=== PATIENT | female | born 1955 | race Caucasian/White ===

== ENCOUNTER 2018-12-03 08:40 | Emergency (ER) | payer OTHER ==
[~2018-12-03] VITALS: Ht 167.6 cm; Wt 65.8 kg
[~2018-12-03 08:40] MED LIST: CLIN150 PO; CYCL10 PO; HYDACE10B PO; MEDICAL THC; MORP50ER PO; NAPR500 PO; RXCLIN PO
[2018-12-03] MEDS ORDERED: METCAR500 PO (09:13)
[2018-12-03] MEDS ORDERED: HYDR1TAB94 PO (09:27)
[2018-12-03] MEDS ORDERED: ABAT250V (09:27)
[2018-12-03] MEDS ORDERED: MORPHINE (09:27)
== END 2018-12-03 09:35 | disposition home or self-care (01) ==
LOC: ER 08:40
DX: M43.6 Torticollis (principal); F17.200 Nicotine dependence, unspecified, uncomplicated; Z91.041 Radiographic dye allergy status; Z88.0 Allergy status to penicillin; Z88.8 Allergy status to other drugs, medicaments and biological substances; Z79.899 Other long term (current) drug therapy; Z79.891 Long term (current) use of opiate analgesic
CPT/HCPCS: 99283

== ENCOUNTER 2018-12-10 12:32 | Emergency (ER) | payer OTHER ==
[~2018-12-10] VITALS: Ht 167.6 cm; Wt 68.0 kg
[~2018-12-10 12:32] MED LIST changes: +ABAT250V; +HYDR1TAB94 PO; +METCAR500 PO; +MORPHINE
[2018-12-10] MEDS ORDERED: LISI20 PO (12:54)
[2018-12-10] MEDS ORDERED: METCAR500 PO (12:54)
[2018-12-10] MEDS ORDERED: Norco 10-325 T1 EACH PO (12:55)
[2018-12-10] MEDS ORDERED: MORP30 PO (12:55)
[2018-12-10 13:07] LABS: BASOPHILS ABSOLUTE AUTO 0.09 K/mm3 (0.00-0.23); BASOPHILS PERCENT AUTO 1 % (0-2); EOSINOPHILS ABSOLUTE AUTO 0.27 K/mm3 (0.00-0.68); EOSINOPHILS PERCENT AUTO 3 % (0-6); Hemoglobin 16.4 g/dL (11.5-16.0); IMMATURE GRAN ABSOLUTE AUTO 0.02 K/mm3 (0.00-0.10); IMMATURE GRAN PERCENT AUTO 0 % (0-1); LYMPHOCYTES ABSOLUTE AUTO 3.86 K/mm3 (0.84-5.20); LYMPHOCYTES PERCENT AUTO 47 % (21-46); MONOCYTES ABSOLUTE AUTO 0.73 K/mm3 (0.16-1.47); MONOCYTES PERCENT AUTO 9 % (4-13); Mean Corpuscular HGB 30.1 pg (26.0-34.0); Mean Corpuscular HGB Conc 32.8 g/dL (31.5-36.5); Mean Corpuscular Volume 92 fL (80-100); Mean Platelet Volume 8.7 fL (9.1-12.4); NEUTROPHILS ABSOLUTE AUTO 3.26 K/mm3 (1.96-9.15); NEUTROPHILS PERCENT AUTO 40 % (41-73); Platelet Count 313 K/mm3 (150-400); RDW Coefficient Variation 13.4 % (11.7-14.2); RDW Standard Deviation 45.4 fL (35.1-46.3); Red Blood Cell Count 5.44 M/mm3 (3.80-5.20); White Blood Cell Count 8.23 K/mm3 (4.00-11.30)
[2018-12-10 13:30] LABS: Alanine Aminotransfer (ALT/SGP 31 U/L (12-78); Albumin, Blood 3.6 g/dL (3.4-5.0); Albumin/Globulin Ratio 0.9 (0.8-1.8); Alk Phos 58 U/L (50-136); Anion Gap 6 mmol/L (6-16); Aspartate Aminotrans (AST/SGOT 35 U/L (12-37); Bilirubin, Total 0.6 mg/dL (0.1-1.0); Blood Urea Nitrogen 23 mg/dL (8-24); Bun/Creatinine Ratio 30.3 (12.0-20.0); CO2, Blood 29 mmol/L (21-32); Calcium, Blood 8.7 mg/dL (8.5-10.1); Chloride, Blood 105 mmol/L (98-108); Creatinine, Blood 0.76 mg/dL (0.40-1.00); Globulin, Blood 3.9 g/dL (2.2-4.0); Glomerular Filtration Rate >60 (60-); Glucose, Blood 95 mg/dL (70-99); Potassium, Blood 4.5 mmol/L (3.5-5.5); Sodium, Blood 140 mmol/L (136-145); Total Protein, Blood 7.5 g/dL (6.4-8.2); Troponin I <0.015 ng/mL (0.000-0.040)
== END 2018-12-10 14:55 | disposition home or self-care (01) ==
LOC: ER 12:32
PROVIDERS: Emergency Medicine
DX: R07.9 Chest pain, unspecified (principal); F17.200 Nicotine dependence, unspecified, uncomplicated; Z91.041 Radiographic dye allergy status; Z88.0 Allergy status to penicillin; Z88.8 Allergy status to other drugs, medicaments and biological substances; Z79.899 Other long term (current) drug therapy
CPT/HCPCS: 36415; 71046; 80053; 84484; 85025; 85379; 93005; 93010; 99284-25

== ENCOUNTER 2019-07-26 11:35 | Inpatient (IN) | payer OTHER ==
[~2019-07-26] VITALS: Ht 170.2 cm; Wt 61.7 kg
[~2019-07-26 11:35] MED LIST changes: +LISI20 PO; +MORP30 PO; +Norco 10-325 T1 EACH PO
[2019-07-26] MEDS ORDERED: Ipratropium Brom5 GM (11:44)
[2019-07-26] MEDS ORDERED: Ipratropium Bro30 ML (11:48)
[2019-07-26 12:11] LABS: BASOPHILS ABSOLUTE AUTO 0.14 K/mm3 (0.00-0.23); BASOPHILS PERCENT AUTO 1 % (0-2); EOSINOPHILS ABSOLUTE AUTO 0.97 K/mm3 (0.00-0.68); EOSINOPHILS PERCENT AUTO 10 % (0-6); Hematocrit 52.7 % (33.0-51.0); Hemoglobin 17.2 g/dL (11.5-16.0); IMMATURE GRAN ABSOLUTE AUTO 0.02 K/mm3 (0.00-0.10); IMMATURE GRAN PERCENT AUTO 0 % (0-1); LYMPHOCYTES ABSOLUTE AUTO 2.66 K/mm3 (0.84-5.20); LYMPHOCYTES PERCENT AUTO 27 % (21-46); MONOCYTES ABSOLUTE AUTO 0.88 K/mm3 (0.16-1.47); MONOCYTES PERCENT AUTO 9 % (4-13); Mean Corpuscular HGB Conc 32.6 g/dL (31.5-36.5); Mean Corpuscular Volume 92 fL (80-100); Mean Platelet Volume 8.7 fL (9.1-12.4); NEUTROPHILS ABSOLUTE AUTO 5.24 K/mm3 (1.96-9.15); NEUTROPHILS PERCENT AUTO 53 % (41-73); Platelet Count 324 K/mm3 (150-400); Red Blood Cell Count 5.73 M/mm3 (3.80-5.20); White Blood Cell Count 9.91 K/mm3 (4.00-11.30)
[2019-07-26 12:33] LABS: Alanine Aminotransfer (ALT/SGP 37 U/L (12-78); Albumin, Blood 4.1 g/dL (3.4-5.0); Albumin/Globulin Ratio 1.1 (0.8-1.8); Alk Phos 52 U/L (50-136); Anion Gap 5 mmol/L (6-16); Aspartate Aminotrans (AST/SGOT 28 U/L (12-37); Bilirubin, Total 0.3 mg/dL (0.1-1.0); Blood Urea Nitrogen 16 mg/dL (8-24); Bun/Creatinine Ratio 21.5 (12.0-20.0); CO2, Blood 31 mmol/L (21-32); Calcium, Blood 9.1 mg/dL (8.5-10.1); Chloride, Blood 103 mmol/L (98-108); Creatinine, Blood 0.75 mg/dL (0.40-1.00); Globulin, Blood 3.6 g/dL (2.2-4.0); Glomerular Filtration Rate >60 (60-); Glucose, Blood 96 mg/dL (70-99); Sodium, Blood 139 mmol/L (136-145); Total Protein, Blood 7.7 g/dL (6.4-8.2); Troponin I <0.015 ng/mL (0.000-0.040)
[2019-07-26] MEDS ORDERED: Prednisone20 MG PO (14:04)
[2019-07-26] MEDS ORDERED: ALBU2.5V5 INH (14:04)
[2019-07-26] MEDS ORDERED: Ventolin/Prove6.7 GM INH (15:49)
[2019-07-26] MEDS ORDERED: IPRATROPIUM INH (17:42)
--- NOTE | 2019-07-26 18:28 | NUR ---
ER ADMIT- PT ARRIVED TO ROOM 343 VIA GURNEY. PT INDEP INTO BED. PT A/OX4. PT WITH INSP AND EXP WHEEZES, 88% ON 3L, INCREASED TO 4L. CONT BIOX PLACED. HACKING DRY NON PRODUCTIVE COUGH. RESP PANEL SENT. PT DENIES ANY OTHER COMPLAINTS. PT ORIENTED TO ROOM AND CALL SYSTEM, CALL LIGHT IN REACH.
[2019-07-26 22:15] LABS: Adenovirus Not Detected (NOT DETECT); Bordetella pertussis Not Detected (NOT DETECT); Chlamydophila pneumoniae Not Detected (NOT DETECT); Coronavirus 229E Not Detected (NOT DETECT); Coronavirus HKU1 Not Detected (NOT DETECT); Coronavirus NL63 Not Detected (NOT DETECT); Coronavirus OC43 Not Detected (NOT DETECT); Human Metapneumovirus Not Detected (NOT DETECT); Human Rhinovirus/Enterovirus Not Detected (NOT DETECT); Influenza A Not Detected (NOT DETECT); Influenza A/2009-H1 Not Detected (NOT DETECT); Influenza A/H1 Not Detected (NOT DETECT); Influenza A/H3 Not Detected (NOT DETECT); Influenza B Not Detected (NOT DETECT); Mycoplasma pneumoniae Not Detected (NOT DETECT); Parainfluenza Virus 1 Not Detected (NOT DETECT); Parainfluenza Virus 2 Not Detected (NOT DETECT); Parainfluenza Virus 3 Not Detected (NOT DETECT); Parainfluenza Virus 4 Not Detected (NOT DETECT); Respiratory Syncytial Virus Not Detected (NOT DETECT)
--- NOTE | 2019-07-27 04:51 | NUR ---
SHIFT SUMMARY A/O, ABLE TO MAKE NEEDS KNOWN. COOPERATIVE WITH CARE. CALLS AND ANSWERS QUESTIONS APPROPRIATELY. C/O HEADACHE AT BEGINNING OF SHIFT; MEDICATED PER EMAR. O2 NEEDS HAVE INCREASED OVERNIGHT FROM 4L NC TO 6L OXYMIZER. RECEIVED ORDER FROM ON-CALL PHYSICIAN FOR REPEAT CHEST XR TODAY WELL PRN TESSALON PEARLS. UP TO BATHROOM INDEPENDENTLY. HYPERTENSIVE AT BEGINNING OF SHIFT; ADDRESSED WITH ON-CALL, STATED TO JUST WATCH; WILL BE STARTING 5MG OF NORVASC TODAY ACCORDING TO H&P. BED REMAINS IN LOWEST POSITION. CALL LIGHT AND BELONGINGS WITHIN REACH. WCTM. REPORT TO ONCOMING RN.
--- NOTE | 2019-07-27 04:56 | NUR ---
SHIFT SUMMARY A/O, ABLE TO MAKE NEEDS KNOWN. SQUAXIN. COOPERATIVE WITH CARE. ANSWERS QUESTIONS APPROPRIATELY. APPEARED TO REST MUCH OF SHIFT. C/O PAIN/DISCOMFORT TO L WRIST; MEDICATED PER EMAR. REMAINS ON 2L NC; O2 SATURATION >95% T/O SHIFT. APPEARS HYPERTENSIVE, BUT ON TREND WITH PREVIOUS. NO ACUTE CHANGES OVERNIGHT. BED IN LOWEST POSITION. CALL LIGHT AND BELONGINGS WITHIN REACH. WCTM. REPORT TO ONCOMING RN.
[2019-07-27 05:42] LABS: Hematocrit 51.9 % (33.0-51.0); Hemoglobin 17.3 g/dL (11.5-16.0); Mean Corpuscular HGB 29.8 pg (26.0-34.0); Mean Corpuscular HGB Conc 33.3 g/dL (31.5-36.5); Mean Platelet Volume 8.8 fL (9.1-12.4); Platelet Count 284 K/mm3 (150-400); RDW Standard Deviation 42.1 fL (35.1-46.3); Red Blood Cell Count 5.81 M/mm3 (3.80-5.20); White Blood Cell Count 6.99 K/mm3 (4.00-11.30)
[2019-07-27 05:46] LABS: Mean Corpuscular Volume 89 fL (80-100)
[2019-07-27 06:11] LABS: Anion Gap 7 mmol/L (6-16); Blood Urea Nitrogen 16 mg/dL (8-24); Bun/Creatinine Ratio 23.2 (12.0-20.0); CO2, Blood 27 mmol/L (21-32); Calcium, Blood 9.6 mg/dL (8.5-10.1); Chloride, Blood 103 mmol/L (98-108); Creatinine, Blood 0.69 mg/dL (0.40-1.00); Glomerular Filtration Rate >60 (60-); Glucose, Blood 142 mg/dL (70-99); Potassium, Blood 3.9 mmol/L (3.5-5.5); Sodium, Blood 137 mmol/L (136-145)
--- NOTE | 2019-07-27 18:05 | NUR ---
SHIFT SUMMARY PT HAS HAD NO ACUTE CHANGES THIS SHIFT. OXYGEN HAS BEEN DECREASED FROM 6 LITERS VIA OXYMIZER TO 5 LITERS AND PT'S SATURATION 90-96%. PT HAS HAD LESS COUGHING THIS AFTERNOON. MANAGER OF INTERNAL WAS IN TO SEE PT THIS AFTERNOON. SEE NEW ORDERS. PT HAS NO REQUESTS AT THIS TIME. FAMILY AT BEDSIDE. CALL LIGHT IN REACH. WILL CONTINUE TO MONITOR AND REPORT TO ONCOMING RN.
--- NOTE | 2019-07-28 04:17 | NUR ---
SHIFT SUMMARY A/O, ABLE TO MAKE NEEDS KNOWN. COOPERATIVE WITH CARE. ANSWERS QUESTIONS APPROPRIATELY. C/O PAIN/DISCOMFORT TO BILATERAL HIPS TO KNEES; MEDICATED PER EMAR. COUGHING THIS AM; WILL MEDICATE PER EMAR. NO ACUTE CHANGES NOTED OVERNIGHT. REMAINED ON 3L VIA NC; RESPIRATIONS EVEN WITH EQUAL RISE/FALL. APPEARED TO REST THROUGHOUT NIGHT. BED IN LOWEST POSITION. INDEPENDENT IN ROOM. CALL LIGHT AND BELONGINS WITHIN REACH. WCTM. REPORT TO ONCOMING RN.
--- NOTE | 2019-07-28 18:21 | NUR ---
SHIFT SUMMARY PATIENT IS PLEASANT, NO ACUTE CONCERNS AT THIS TIME. SHE IS ON HER OXYGEN AND MOVING AROUND THE ROOM IN HER ROOM INDEPENDENTLY. PLEASANT ALERT AND ORIENTED.
--- NOTE | 2019-07-29 01:29 | NUR ---
07/28/191944 PT SITTING UP IN BED. SLIGHTLY ANXIOUS REGARDING HER PAIN MEDICATION REGIMEN. PT REPORTS PAIN IN BACK AND LEGS, PAIN MEDICATION GIVEN, WILL EVAL FOR EFFECT. PT DENIES SOB AT THIS TIME. ON 4L O2 NC AT 91%. NO OTHER APPARENT SIGNS OF DISTRESS. CALL LIGHT IS IN REACH.
--- NOTE | 2019-07-29 02:11 | NUR ---
0000 PT LYING IN BED, EYES CLOSED, APPEARS TO BE RESTING. WAKES EASILY TO VERBAL STIMULI. NO APPARENT SIGNS OF DISTRESS. CALL LIGHT IS IN REACH.
--- NOTE | 2019-07-29 02:13 | NUR ---
PT LYING IN BED, EYES CLOSED, APPEARS TO BE RESTING. BREATHING IS EVEN, UNLABORED. NO APPARENT SIGNS OF DISTRESS. CALL LIGHT IS IN REACH.
--- NOTE | 2019-07-29 04:28 | NUR ---
PT LYING IN BED, EYES CLOSED, APPEARS TO BE RESTING. WAKES EASILY TO VERBAL STIMULI. NO APPARENT SIGNS OF DISTRESS. CALL LIGHT IS IN REACH.
--- NOTE | 2019-07-29 05:10 | NUR ---
PT IS AAO X 3, ON 4L O2 NC AT 91%. DENIES SOB. PT REPORTS PAIN IN HER BACK AND LEGS. SHE GOT HER SCHEDULED MS CONTIN. I CHECKED ON HER MULT TIMES AFTER THAT AND SHE WAS ALWAYS ASLEEP. PT DOES HAVE SOME ANXIETY REGARDING HER PAIN MEDICATION REGIMEN.
--- NOTE | 2019-07-29 05:48 | NUR ---
PT REQUESTED AND RECIEVED PAIN MEDICATION. WILL EVAL FOR EFFECT. NO OTHER APPARENT SIGNS OF DISTRESS. CALL LIGHT IS IN REACH. NO OTHER CHANGES THIS SHIFT.
[2019-07-29] MEDS ORDERED: Flonase 0.05% N16 GM (10:17)
[2019-07-29] MEDS ORDERED: AMLO10 PO (10:17)
[2019-07-29] MEDS ORDERED: AIRDUO RESPICL1 EACH INH (10:18)
[2019-07-29] MEDS ORDERED: ALBU3IS INH (10:18)
[2019-07-29] MEDS ORDERED: Prednisone10 MG PO (10:19)
[2019-07-29] MEDS ORDERED: NICO21TP TOP (10:19)
--- NOTE | 2019-07-29 14:28 | NUR ---
DISCHARGE SUMMARY PATIENT IS PLEASANT, NO ACUTE CONCERNS PRIOR TO DISCHARGE. PATIENT IS MOVING INDEPENDENTLY. OXYGEN HAS BEEN BROUGHT TO THE PATIENT FROM [facility] AND A CARD WAS GIVEN TO THE PATIENT TO CALL WHEN THEY ARRIVED HOME. PATIENT INFORMATION GIVEN TO THE PATIENT PRIOR TO DISCHARGE. NO ACUTE CONCERNS FROM THE PATIENT AT THE TIME.
== END 2019-07-29 13:56 | disposition home or self-care (01) | DRG 189 ==
LOC: ER 11:35 → MEDS 17:15 → ENPENDDIS 07-29 09:40 → MEDS 07-29 13:56
PROVIDERS: Emergency Medicine; ADMIT Hospitalist
DX: J96.01 Acute respiratory failure with hypoxia (principal); E44.0 Moderate protein-calorie malnutrition; F11.20 Opioid dependence, uncomplicated; J44.1 Chronic obstructive pulmonary disease with (acute) exacerbation; D75.1 Secondary polycythemia; I10 Essential (primary) hypertension; G62.9 Polyneuropathy, unspecified; G89.4 Chronic pain syndrome; F17.210 Nicotine dependence, cigarettes, uncomplicated; F41.9 Anxiety disorder, unspecified; R00.0 Tachycardia, unspecified; Z68.21 Body mass index [BMI] 21.0-21.9, adult; Z79.899 Other long term (current) drug therapy; Z88.5 Allergy status to narcotic agent; Z88.0 Allergy status to penicillin; Z88.8 Allergy status to other drugs, medicaments and biological substances; Z91.041 Radiographic dye allergy status
CPT/HCPCS: 0099U; 36415; 71046; 80048; 80053; 83880; 84484; 85025; 85027; 85730; 93005; 93010; 93306; 94640; 94644; 94761; 94762; 99285-25; A9270; J1650; J2920; J7512

== ENCOUNTER 2020-08-21 14:57 | Emergency (ER) | payer OTHER ==
[~2020-08-21] VITALS: Ht 167.6 cm; Wt 86.2 kg
[~2020-08-21 14:57] MED LIST changes: +AIRDUO RESPICL1 EACH INH; +ALBU2.5V5 INH; +ALBU3IS INH; +AMLO10 PO; +Flonase 0.05% N16 GM; +IPRATROPIUM INH; +Ipratropium Bro30 ML; +Ipratropium Brom5 GM; +NICO21TP TOP; +Prednisone10 MG PO; +Prednisone20 MG PO; +Ventolin/Prove6.7 GM INH
[2020-08-21 15:32] LABS: BASOPHILS ABSOLUTE AUTO 0.13 K/mm3 (0.00-0.23); BASOPHILS PERCENT AUTO 1 % (0-2); EOSINOPHILS PERCENT AUTO 8 % (0-6); Hematocrit 49.7 % (33.0-51.0); Hemoglobin 16.1 g/dL (11.5-16.0); IMMATURE GRAN ABSOLUTE AUTO 0.06 K/mm3 (0.00-0.10); IMMATURE GRAN PERCENT AUTO 0 % (0-1); LYMPHOCYTES ABSOLUTE AUTO 3.63 K/mm3 (0.84-5.20); LYMPHOCYTES PERCENT AUTO 25 % (21-46); MONOCYTES ABSOLUTE AUTO 1.13 K/mm3 (0.16-1.47); MONOCYTES PERCENT AUTO 8 % (4-13); Mean Corpuscular HGB 29.8 pg (26.0-34.0); Mean Corpuscular HGB Conc 32.4 g/dL (31.5-36.5); Mean Corpuscular Volume 92 fL (80-100); Mean Platelet Volume 8.7 fL (9.1-12.4); NEUTROPHILS ABSOLUTE AUTO 8.25 K/mm3 (1.96-9.15); NEUTROPHILS PERCENT AUTO 58 % (41-73); Platelet Count 376 K/mm3 (150-400); RDW Coefficient Variation 14.2 % (11.7-14.2); RDW Standard Deviation 48.2 fL (35.1-46.3)
[2020-08-21 15:54] LABS: Alanine Aminotransfer (ALT/SGP 55 U/L (12-78); Albumin, Blood 4.2 g/dL (3.4-5.0); Albumin/Globulin Ratio 1.1 (0.8-1.8); Alk Phos 62 U/L (50-136); Anion Gap 5 mmol/L (6-16); Aspartate Aminotrans (AST/SGOT 26 U/L (12-37); Bilirubin, Total 0.5 mg/dL (0.1-1.0); Blood Urea Nitrogen 11 mg/dL (8-24); Bun/Creatinine Ratio 15.9 (12.0-20.0); CO2, Blood 30 mmol/L (21-32); Calcium, Blood 9.1 mg/dL (8.5-10.1); Chloride, Blood 104 mmol/L (98-108); Creatinine, Blood 0.69 mg/dL (0.40-1.00); Globulin, Blood 3.9 g/dL (2.2-4.0); Glomerular Filtration Rate >60 (60-); Glucose, Blood 145 mg/dL (70-99); Potassium, Blood 3.9 mmol/L (3.5-5.5); Sodium, Blood 139 mmol/L (136-145); Total Protein, Blood 8.1 g/dL (6.4-8.2); Troponin I <0.015 ng/mL (0.000-0.040)
[2020-08-21] MEDS ORDERED: Prednisone50 MG PO (21:07)
[2020-08-21] MEDS ORDERED: Zithromax250 MG PO (22:51)
== END 2020-08-21 23:30 | disposition home or self-care (01) ==
LOC: ER 14:57
PROVIDERS: Physician Assistant
DX: J44.1 Chronic obstructive pulmonary disease with (acute) exacerbation (principal); F17.200 Nicotine dependence, unspecified, uncomplicated; Z20.828 Contact with and (suspected) exposure to other viral communicable diseases; Z79.52 Long term (current) use of systemic steroids; Z88.0 Allergy status to penicillin; Z79.899 Other long term (current) drug therapy; Z91.041 Radiographic dye allergy status
CPT/HCPCS: 36415; 71046; 80053; 84484; 85025; 93005; 93010; 94644; 96374; 99285-25; J1100; U0003

== ENCOUNTER 2022-12-19 15:30 | Inpatient (IN) | payer MEDICARE, OTHER ==
[~2022-12-19] VITALS: Ht 167.6 cm; Wt 66.9 kg
[~2022-12-19 15:30] MED LIST changes: -ALBU3IS INH; +Prednisone50 MG PO; +Zithromax250 MG PO
[2022-12-19 16:01] LABS: BASOPHILS PERCENT AUTO 1 % (0-2); EOSINOPHILS ABSOLUTE AUTO 0.05 K/mm3 (0.00-0.68); EOSINOPHILS PERCENT AUTO 0 % (0-6); Hematocrit 43.3 % (33.0-51.0); Hemoglobin 14.7 g/dL (11.5-16.0); IMMATURE GRAN PERCENT AUTO 2 % (0-1); LYMPHOCYTES ABSOLUTE AUTO 1.42 K/mm3 (0.84-5.20); LYMPHOCYTES PERCENT AUTO 7 % (21-46); MONOCYTES ABSOLUTE AUTO 0.41 K/mm3 (0.16-1.47); MONOCYTES PERCENT AUTO 2 % (4-13); Mean Corpuscular HGB 29.5 pg (26.0-34.0); Mean Corpuscular HGB Conc 33.9 g/dL (31.5-36.5); Mean Corpuscular Volume 87 fL (80-100); Mean Platelet Volume 8.7 fL (9.1-12.4); NEUTROPHILS ABSOLUTE AUTO 17.14 K/mm3 (1.96-9.15); NEUTROPHILS PERCENT AUTO 88 % (41-73); Platelet Count 500 K/mm3 (150-400); RDW Coefficient Variation 13.9 % (11.7-14.2); RDW Standard Deviation 44.2 fL (35.1-46.3); Red Blood Cell Count 4.99 M/mm3 (3.80-5.20); White Blood Cell Count 19.42 K/mm3 (4.00-11.30)
[2022-12-19 16:25] LABS: Albumin/Globulin Ratio 0.6 (0.8-1.8); Bilirubin, Total 0.3 mg/dL (0.1-1.0); Bun/Creatinine Ratio 19.9 (12.0-20.0); Calcium, Blood 9.4 mg/dL (8.5-10.1); Creatinine, Blood 0.55 mg/dL (0.40-1.00); Globulin, Blood 5.2 g/dL (2.2-4.0); Potassium, Blood 3.8 mmol/L (3.5-5.5); Total Protein, Blood 8.2 g/dL (6.4-8.2)
[2022-12-19 16:36] LABS: Influenza A, PCR NEGATIVE (NEGATIVE); Influenza B, PCR NEGATIVE (NEGATIVE); Resp Syncytial Virus, PCR NEGATIVE (NEGATIVE); SARS-Cov-2 (COVID-19) PCR, MMC NEGATIVE (NEGATIVE)
[2022-12-19 20:21] LABS: Adenovirus Not Detected (NOT DETECT); Bordetella pertussis Not Detected (NOT DETECT); Chlamydophila pneumoniae Not Detected (NOT DETECT); Coronavirus 229E Not Detected (NOT DETECT); Coronavirus HKU1 Not Detected (NOT DETECT); Coronavirus NL63 Not Detected (NOT DETECT); Coronavirus OC43 Not Detected (NOT DETECT); Human Metapneumovirus Not Detected (NOT DETECT); Human Rhinovirus/Enterovirus Detected (NOT DETECT); Influenza A/2009-H1 Not Detected (NOT DETECT); Influenza A/H1 Not Detected (NOT DETECT); Influenza A/H3 Not Detected (NOT DETECT); Influenza B Not Detected (NOT DETECT); Mycoplasma pneumoniae Not Detected (NOT DETECT); Parainfluenza Virus 1 Not Detected (NOT DETECT); Parainfluenza Virus 2 Not Detected (NOT DETECT); Parainfluenza Virus 3 Not Detected (NOT DETECT); Parainfluenza Virus 4 Not Detected (NOT DETECT); Respiratory Syncytial Virus Not Detected (NOT DETECT); SARS-Cov-2 (COVID-19), BioFire Not Detected (NOT DETECT)
[2022-12-19] MEDS ORDERED: ATOR20 PO (20:55)
[2022-12-19] MEDS ORDERED: TRELEGY ELLIPT1 EACH IH (20:56)
[2022-12-19] MEDS ORDERED: Ventolin5 MG/1 ML INH (20:57)
--- NOTE | 2022-12-20 04:29 | NUR ---
Summary: Patient admitted overnight from ER. Currently on 4L NC. Patient has persistent hacking cough. Voice is very hoarse. Notified MD recieved orders for cough syrup instead of mucinex. Very diminished lung sounds. Patient able to ambulate independently to restroom. VSS. AOX4. Call light in reach.
[2022-12-20 04:35] LABS: Hematocrit 38.1 % (33.0-51.0); Mean Corpuscular HGB 29.8 pg (26.0-34.0); Mean Corpuscular HGB Conc 34.1 g/dL (31.5-36.5); Mean Corpuscular Volume 87 fL (80-100); Mean Platelet Volume 8.7 fL (9.1-12.4); Platelet Count 444 K/mm3 (150-400); Red Blood Cell Count 4.36 M/mm3 (3.80-5.20); White Blood Cell Count 14.52 K/mm3 (4.00-11.30)
[2022-12-20 04:51] LABS: Magnesium, Blood 2.6 mg/dL (1.6-2.4)
[2022-12-20 04:52] LABS: Bun/Creatinine Ratio 22.1 (12.0-20.0); Calcium, Blood 8.8 mg/dL (8.5-10.1); Creatinine, Blood 0.59 mg/dL (0.40-1.00); Potassium, Blood 4.2 mmol/L (3.5-5.5)
--- NOTE | 2022-12-20 07:59 | NUR ---
pt sitting up in bed with harsh cough, a/ox4, pleasant and cooperative with care, follows commands well, reports a h/a, voice is quiet and raspy, lungs are dim/course t/o, resp even and unlabored at rest, becomes sob with any activity, currently on 3 liters 02 via n/c, productive cough of green/yellow sputum, hrr, no edema noted, ppp+2, cap refill <3sec, vs stable, afebrile, iv site to rfa is clear and patent, btx4, abd flat soft nontender, voids without diff, skin c/w/d, gerda davis, call light in reach, administered cough syrup this am.
--- NOTE | 2022-12-20 18:11 | NUR ---
pt continues to have a raspy voice and harsh productive cough, have given several doses of cough syrup, no complaints or needs, no acute changes this shift. she took a shower this afternoon, call light in reach.
[2022-12-21 04:51] LABS: BASOPHILS ABSOLUTE AUTO 0.02 K/mm3 (0.00-0.23); BASOPHILS PERCENT AUTO 0 % (0-2); EOSINOPHILS PERCENT AUTO 0 % (0-6); Hematocrit 38.6 % (33.0-51.0); IMMATURE GRAN ABSOLUTE AUTO 0.33 K/mm3 (0.00-0.10); IMMATURE GRAN PERCENT AUTO 2 % (0-1); LYMPHOCYTES ABSOLUTE AUTO 1.47 K/mm3 (0.84-5.20); LYMPHOCYTES PERCENT AUTO 9 % (21-46); MONOCYTES PERCENT AUTO 4 % (4-13); Mean Corpuscular HGB 29.6 pg (26.0-34.0); Mean Corpuscular HGB Conc 33.7 g/dL (31.5-36.5); Mean Corpuscular Volume 88 fL (80-100); Mean Platelet Volume 8.6 fL (9.1-12.4); NEUTROPHILS ABSOLUTE AUTO 14.08 K/mm3 (1.96-9.15); NEUTROPHILS PERCENT AUTO 85 % (41-73); Platelet Count 484 K/mm3 (150-400); RDW Coefficient Variation 14.1 % (11.7-14.2); RDW Standard Deviation 45.4 fL (35.1-46.3); Red Blood Cell Count 4.39 M/mm3 (3.80-5.20)
--- NOTE | 2022-12-21 17:09 | NUR ---
SHIFT SUMMARY- PT IS A/O, PLESANT AND COOPERATIVE. SHE IS EATING AND DRINKING WELL. SHE IS WORKING WITH RT. SHE IS INDEPENDENT TO THE RESTROOM. HER WAS AT THE BEDSIDE THIS SHIFT. POSSIBLE DISCHARGE TOMORROW
--- NOTE | 2022-12-22 04:14 | NUR ---
SHIFT SUMMARY ADMITTED FOR COPD EXACERBATION. FULL CODE. PLAN IS FOR DC HOME, AND POSSIBLE HOME O2 EVALUATION. SHE IS A&O X4, INDEPENDENT, REGULAR DIET. SHE IS ON RA AT HOME, 2 LPM O2 HERE. SOLUMEDROL AND RT TX'S ARE SCHEDULED. SHE DOES HAVE A REMOTE HX OF BEING ON O2 AT HOME, AND HAS BEEN ON RA FOR APPROXIMATELY ONE YEAR.
[2022-12-22 04:54] LABS: BASOPHILS ABSOLUTE AUTO 0.03 K/mm3 (0.00-0.23); BASOPHILS PERCENT AUTO 0 % (0-2); EOSINOPHILS PERCENT AUTO 0 % (0-6); IMMATURE GRAN ABSOLUTE AUTO 0.38 K/mm3 (0.00-0.10); IMMATURE GRAN PERCENT AUTO 3 % (0-1); LYMPHOCYTES ABSOLUTE AUTO 1.39 K/mm3 (0.84-5.20); LYMPHOCYTES PERCENT AUTO 12 % (21-46); MONOCYTES ABSOLUTE AUTO 0.37 K/mm3 (0.16-1.47); MONOCYTES PERCENT AUTO 3 % (4-13); Mean Corpuscular HGB 29.1 pg (26.0-34.0); Mean Corpuscular HGB Conc 33.3 g/dL (31.5-36.5); Mean Corpuscular Volume 87 fL (80-100); Mean Platelet Volume 8.5 fL (9.1-12.4); NEUTROPHILS ABSOLUTE AUTO 9.93 K/mm3 (1.96-9.15); NEUTROPHILS PERCENT AUTO 82 % (41-73); Platelet Count 523 K/mm3 (150-400); RDW Coefficient Variation 14.3 % (11.7-14.2); RDW Standard Deviation 46.2 fL (35.1-46.3); Red Blood Cell Count 4.81 M/mm3 (3.80-5.20)
[2022-12-22] MEDS ORDERED: NICODERM CQ1 EA11 TOP (11:41)
[2022-12-22] MEDS ORDERED: AZIT500 PO (11:42)
[2022-12-22] MEDS ORDERED: CODEINE-GUAIFE120 M1 PO (11:42)
[2022-12-22] MEDS ORDERED: IPRAT-ALBUT 0.5-3 ML INH (11:43)
[2022-12-22] MEDS ORDERED: VISBIOME 112.51 EACH PO (11:44)
[2022-12-22] MEDS ORDERED: CEPH500 PO (11:44)
[2022-12-22] MEDS ORDERED: Prednisone10 MG PO (11:46)
--- NOTE | 2022-12-22 14:38 | NUR ---
SHIFT SUMMARY PATIENT TRANSPORTED VIA WHEELCHAIR TO PRIVATE VEHICLE. DISCHARGE INSTRUCTIONS EXPLAINED TO PATIENT. PATIENT STATED UNDERSTANDING. PACKET SENT WITH PATIENT. BELONGINGS SENT WITH PATIENT. OXYGEN DELIVERED TO PATIENT ROOM. TRANSPORT TANK SENT WITH PATIENT. IV REMOVED WITHOUT DIFFICULTY. MEDICATIONS FAXED TO PREFERRED PHARMACY. HARD SCRIPT SENT WITH PATIENT. PATIENT TO SCHEDULE FOLLOW UP APPOINTMENT WITH BOX SPINNER AND PCP.
== END 2022-12-22 14:43 | disposition home or self-care (01) | DRG 871 ==
LOC: ER 15:30 → MEDS 20:42
PROVIDERS: Family Medicine; Nurse Practitioner Acute Care; Physician Assistant; ADMIT Internal Medicine
DX: A41.89 Other specified sepsis (principal); J12.89 Other viral pneumonia; J96.01 Acute respiratory failure with hypoxia; J44.1 Chronic obstructive pulmonary disease with (acute) exacerbation; J44.0 Chronic obstructive pulmonary disease with (acute) lower respiratory infection; Z20.822 Contact with and (suspected) exposure to COVID-19; F17.210 Nicotine dependence, cigarettes, uncomplicated; F41.9 Anxiety disorder, unspecified; J06.9 Acute upper respiratory infection, unspecified; D75.838 Other thrombocytosis; T38.0X5A Adverse effect of glucocorticoids and synthetic analogues, initial encounter; B97.19 Other enterovirus as the cause of diseases classified elsewhere; Z28.21 Immunization not carried out because of patient refusal; G89.29 Other chronic pain; Z90.89 Acquired absence of other organs; Z98.51 Tubal ligation status; Z98.890 Other specified postprocedural states
CPT/HCPCS: 0202U; 0241U; 36415; 71046; 80048; 80053; 83605; 83735; 83880; 84145; 85025; 85027; 87040; 93005; 93010; 94640; 94664; 94760; 94761; 96361; 96365; 96375; 99284-25; A9270; J0456; J0696; J1650; J2930; J7030; J7050

== ENCOUNTER 2024-05-08 07:53 | Day surgery (SDC) | payer MEDICARE, OTHER ==
[~2024-05-08] VITALS: Ht 167.6 cm; Wt 88.5 kg
[~2024-05-08 07:53] MED LIST changes: +ATOR20 PO; +AZIT500 PO; +CEPH500 PO; +CODEINE-GUAIFE120 M1 PO; +IPRAT-ALBUT 0.5-3 ML INH; +Lactated Ringer's 1,000 ML IV SCH; +NICODERM CQ1 EA11 TOP; +TRELEGY ELLIPT1 EACH IH; +VISBIOME 112.51 EACH PO; +Ventolin5 MG/1 ML INH
[2024-05-08 09:30] VITALS: BP 141/86
--- NOTE | 2024-05-08 09:43 | NUR ---
Ambulatory in Day Surgery. History, Chart, Medications and Allergies reviewed before start of procedure. Lungs clear T/O to Auscultation. Patient confirms NPO status and agrees with scheduled surgery. Patient States Post-Procedure ride home has been arranged.
[2024-05-08] MEDS ORDERED: Midazolam HCl 1MG / ML 2ML Vial ONE (10:11)
[2024-05-08] MEDS ORDERED: propofoL 20 ML IV ONE (10:11)
[2024-05-08] MEDS ORDERED: FentaNYL Citrate 50 MCG/ML 2 ML Injection ONE (10:11)
--- NOTE | 2024-05-08 10:22 | NUR ---
05/08/24 1022 Nico Thapa History, Chart, Medications and Allergies reviewed before start of procedure. MONITOR INTACT WITH CONTINUOUS PULSE OXIMETRY, CONTINUOUS END TITAL CO2, AND INTERMITTENT BLOOD PRESSURE. 3-LEAD EKG REVIEWED WITH PHYSICIAN PRIOR TO START OF PROCEDURE. O2 VIA POM INTACT THROUGHOUT SEDATION/PROCEDURE.
[2024-05-08 10:45] VITALS: BP 101/57
[2024-05-08 11:00] VITALS: BP 111/72
--- NOTE | 2024-05-08 11:13 | NUR ---
DISCHARGE NOTE PT A&OX4, BREATHING RA, NO COMPLAINTS, TOLERATING PO FLUIDS, VSS, AT BEDSIDE. ABDOMEN SOFT AND NON TENDER. GLASSES BACK ON PT. Patient up to Ambulate independently. Gait steady.PT DRESSED INDEPENDENTLY. Discharge instructions reviewed with patient. Patient verbalizes understanding. Copy given to patient to take home. Discharged via wheelchair to private car for ride home.
== END 2024-05-08 11:13 | disposition home or self-care (01) ==
LOC: ORSCMMR 07:53 → ORD 10:30 → ORSCMMR 11:13
PROVIDERS: Internal Medicine Gastroenterology
PROC: 0DBL8ZX Excision of Transverse Colon, Via Natural or Artificial Opening Endoscopic, Diagnostic (ICD-10-PCS; principal; 2024-05-08 10:30)
DX: Z12.11 Encounter for screening for malignant neoplasm of colon (principal); D12.3 Benign neoplasm of transverse colon; E78.00 Pure hypercholesterolemia, unspecified; E11.9 Type 2 diabetes mellitus without complications; I10 Essential (primary) hypertension; J44.9 Chronic obstructive pulmonary disease, unspecified; F17.210 Nicotine dependence, cigarettes, uncomplicated; Z79.899 Other long term (current) drug therapy
CPT/HCPCS: 88305; J2250; J2704; J3010; J7120

== ENCOUNTER 2024-09-23 13:11 | Observation (INO) | payer MEDICARE, OTHER ==
[2024-09-23] VITALS (14 sets, daily range): BP systolic 103–164; BP diastolic 53–76
[2024-09-23] MEDS ORDERED: Metoclopramide HCl 5MG / ML 2ML Vial IV ONE (14:40)
[2024-09-23] MEDS ORDERED: FentaNYL Citrate 50 MCG/ML 2 ML Injection IV ONE (14:40)
[2024-09-23] MEDS ORDERED: Ketorolac Tromethamine 15mg Vial IV ONE (14:40)
[2024-09-23] MEDS ORDERED: DiphenhydrAMINE HCl 50 MG/ML 1ML Vial IV ONE (14:40)
[2024-09-23] MEDS ORDERED: NS 1,000 ML IV SCH (14:45)
[2024-09-23] MEDS ORDERED: CefOXitin Sodium 2,000 MG in NS 50 ML IV ONE (14:50)
[2024-09-23] MEDS ORDERED: MetroNIDAZOLE 500MG/NS 100 ml 100 ML IV ONE (14:50)
[2024-09-23] MEDS ORDERED: CefTRIAXone Sodium 1,000 MG in NS 100 ML IV ONE (14:55)
[2024-09-23] MEDS ORDERED: Bupivacaine 0.5% HCl 5 MG/ML 30MLVIAL ONE (15:20)
[2024-09-23] MEDS ORDERED: FentaNYL Citrate 50 MCG/ML 2 ML Injection ONE (15:23)
[2024-09-23] MEDS ORDERED: propofoL 20 ML IV ONE (15:23)
[2024-09-23] MEDS ORDERED: Rocuronium Bromide 10 MG/ML 5ML Injection IV ONE (15:24)
[2024-09-23] MEDS ORDERED: Albuterol 2.5 MG/3 ML VIAL INH PRN (16:15)
[2024-09-23] MEDS ORDERED: Ondansetron HCl 2 MG / ML 2ML Vial IV PRN (16:15)
[2024-09-23] MEDS ORDERED: Mometasone/Formoterol MDI 100/5 mcg 13 GM INH SCH (16:20)
[2024-09-23] MEDS ORDERED: Tiotropium Bromide 2.5 MCG/ACT MIST INHAL (10 ACT/4 GM) INH SCH (16:20)
[2024-09-23] MEDS ORDERED: Sugammadex Sodium 200 MG/2ML SDV (100 MG/ML) ONE (16:21)
[2024-09-23] MEDS ORDERED: Dexamethasone Sod Phos 10 MG/ML 1ML VIAL ONE (16:21)
[2024-09-23] MEDS ORDERED: Ondansetron HCl 2 MG / ML 2ML Vial ONE (16:21)
[2024-09-23] MEDS ORDERED: Lactated Ringer's 1,000 ML IV SCH (17:00)
[2024-09-23] MEDS ORDERED: HYDROcodone 5-APAP 325 TAB PO PRN (17:00)
[2024-09-23] MEDS ORDERED: Albuterol 2.5 MG/3 ML VIAL ONE (17:15)
[2024-09-23] MEDS ORDERED: Nicotine 7 MG PATCH TOP ONE (18:15)
--- NOTE | 2024-09-23 18:30 | NUR ---
PT REQUESTING NICOTINE PATCH. NOTIFIED DR. MILLER, ORDER RECIEVED FOR ONE TIME DOSE TONIGHT.
--- NOTE | 2024-09-23 20:02 | NUR ---
POST OP NOTE/SHIFT SUMMARY PT INTO ROOM FROM PACU. VSS, O2 SATS 88-90% ON 4L OXIMIZER. INCREASED TO 5L OXIMIZER. AFTER VISITORS LEFT AND PT ABLE TO QUIETLY REST, O2 SATS 94-96% ON 3L OXIMIZER. PT ABLE TO DB&C. SBA TO BR. PT VOIDING AND TOLERATING CONS CARB DIET, SALINE LOCKED. MEDICATED FOR PAIN W/ PO PAIN MEDS, PT DENIES NEED FOR NAUSEA MEDS. VSS. LAP SITES X3 C/D/I. PT USING CALL LIGHT APPROPRIATELY, CURRENTLY RESTING PEACEFULLY IN ROOM AND WATCHING TV.
[2024-09-24 03:05] VITALS: BP 150/80
[2024-09-24 05:42] LABS: BASOPHILS ABSOLUTE AUTO 0.03 K/mm3 (0.00-0.23); BASOPHILS PERCENT AUTO 0 % (0-2); EOSINOPHILS PERCENT AUTO 0 % (0-6); Hematocrit 42.6 % (33.0-51.0); Hemoglobin 14.1 g/dL (11.5-16.0); IMMATURE GRAN ABSOLUTE AUTO 0.05 K/mm3 (0.00-0.10); IMMATURE GRAN PERCENT AUTO 0 % (0-1); LYMPHOCYTES ABSOLUTE AUTO 1.09 K/mm3 (0.84-5.20); LYMPHOCYTES PERCENT AUTO 7 % (21-46); MONOCYTES ABSOLUTE AUTO 0.73 K/mm3 (0.16-1.47); MONOCYTES PERCENT AUTO 5 % (4-13); Mean Corpuscular HGB 29.9 pg (26.0-34.0); Mean Corpuscular HGB Conc 33.1 g/dL (31.5-36.5); Mean Corpuscular Volume 90 fL (80-100); Mean Platelet Volume 8.7 fL (9.1-12.4); NEUTROPHILS PERCENT AUTO 88 % (41-73); Platelet Count 308 K/mm3 (150-400); RDW Coefficient Variation 14.1 % (11.7-14.2); RDW Standard Deviation 47.2 fL (35.1-46.3); Red Blood Cell Count 4.71 M/mm3 (3.80-5.20)
[2024-09-24 06:11] LABS: Albumin, Blood 3.2 g/dL (3.4-5.0); Bilirubin, Total 0.4 mg/dL (0.1-1.0); Bun/Creatinine Ratio 15.2 (12.0-20.0); Calcium, Blood 8.5 mg/dL (8.5-10.1); Creatinine, Blood 0.73 mg/dL (0.40-1.00); Globulin, Blood 3.1 g/dL (2.2-4.0); Potassium, Blood 4.1 mmol/L (3.5-5.5); Total Protein, Blood 6.3 g/dL (6.4-8.2)
--- NOTE | 2024-09-24 06:57 | NUR ---
SHIFT SUMMARY AT START OF SHIFT, PT LYING IN HER BED. WITH ASSESSMENT, PT STATED SHE HAS "A LITTLE BIT" OF TINGLING IN 5TH METATARSAL OF RIGHT FOOT. STILL HAS FULL SENSATION, THOUGH. INCISION DRESSINGS ARE CLEAN AND INTACT. PT PLEASANT AND COOPERATIVE WITH CARE. AFTER EVENING MED PASS, PT REQUESTED LIGHTS BE TURNED OFF AND DOOR SHUT, SO SHE CAN SLEEP. WITH MIDNIGHT FOCUSED ASSESSMENT, PT ABLE TO SHOW DRESSINGS, THIS RN ASKED ABOUT PAIN, OFFERED PAIN MEDICATION, PT STATED SHE WAS "FINE FOR NOW". REMINDED PT THAT IF SHE FELT LIKE SHE NEEDED SOMETHING FOR PAIN, TO USE HER CALL LIGHT, AND SHE COULD GET MEDICATION. PT UP TO BATHROOM, MEDICATED FOR PAIN 03/10. PT BACK IN BED AND RELAXING. PT COMFORTABLE AND PAIN DECREASED TO "3 OR 4, IT'S DEFINITELY GONE DOWN."
[2024-09-24 07:25] VITALS: BP 150/89
[2024-09-24] MEDS ORDERED: Enoxaparin 40 MG/0.4 ML SYR SC SCH (09:00)
[2024-09-24] MEDS ORDERED: Nicotine 7 MG PATCH TOP SCH (09:00)
[2024-09-24 13:32] VITALS: BP 124/80
[2024-09-24] MEDS ORDERED: HYDR1TAB94 PO (13:39)
--- NOTE | 2024-09-24 14:10 | NUR ---
DISCHARGE NOTE PT IS TOLERATING REG DIET, VOIDING, AMBULATING INDEPENDENTLY. PT IS REQUIRING 2LNC INTERMITTENTLY AFTER ACTIVITY OR WHILE TALKING/EATING, SHE DOES REPORT HAVING OXYGEN AT HOME IF NEEDED. PAIN MANAGED W/ PO PAIN MEDS, PT GIVEN HARD SCRIPT, COPY IN THE CHART. VSS. DISCHARGE INSTRUCTIONS REVIEWED, COPY GIVEN TO PT. PT DC'D TO PRIVATE RIDE HOME VIA WC W/ BELONGINGS.
== END 2024-09-24 14:10 | disposition home or self-care (01) ==
LOC: ER 13:11 → SURS 13:12 → ER 16:51 → SURS 16:51 → ER 09-24 08:27 → SURS 09-24 08:27
PROVIDERS: Surgery; ADMIT Internal Medicine Endocrinology, Diabetes & Metabolism
PROC: 0DTJ0ZZ Resection of Appendix, Open Approach (ICD-10-PCS; principal; 2024-09-23 12:15)
DX: K35.80 Unspecified acute appendicitis (principal); C18.1 Malignant neoplasm of appendix; E78.5 Hyperlipidemia, unspecified; I10 Essential (primary) hypertension; J44.9 Chronic obstructive pulmonary disease, unspecified; F17.210 Nicotine dependence, cigarettes, uncomplicated; E11.9 Type 2 diabetes mellitus without complications; K21.9 Gastro-esophageal reflux disease without esophagitis; G89.29 Other chronic pain; Z88.0 Allergy status to penicillin; Z88.8 Allergy status to other drugs, medicaments and biological substances; Z91.041 Radiographic dye allergy status
CPT/HCPCS: 36415; 80053; 85025; 88304; 94640; 94664; 94760; 94762; 96365-59; 96375-59; 99284-25; A9270; J0696; J1100; J1200; J1650; J1885; J2405; J2704; J2765; J3010; J7030; J7120

== ENCOUNTER → 2024-09-23 | Outpatient (CLI) | payer MEDICARE, OTHER ==
[~2024-09-23] MED LIST changes: -Lactated Ringer's 1,000 ML IV SCH
[2024-09-23 10:51] LABS: BASOPHILS ABSOLUTE AUTO 0.05 K/mm3 (0.00-0.23); BASOPHILS PERCENT AUTO 0 % (0-2); EOSINOPHILS ABSOLUTE AUTO 0.04 K/mm3 (0.00-0.68); EOSINOPHILS PERCENT AUTO 0 % (0-6); Hematocrit 48.4 % (33.0-51.0); Hemoglobin 15.8 g/dL (11.5-16.0); IMMATURE GRAN ABSOLUTE AUTO 0.05 K/mm3 (0.00-0.10); IMMATURE GRAN PERCENT AUTO 0 % (0-1); LYMPHOCYTES ABSOLUTE AUTO 1.91 K/mm3 (0.84-5.20); LYMPHOCYTES PERCENT AUTO 14 % (21-46); MONOCYTES ABSOLUTE AUTO 0.88 K/mm3 (0.16-1.47); MONOCYTES PERCENT AUTO 6 % (4-13); Mean Corpuscular HGB 29.3 pg (26.0-34.0); Mean Corpuscular HGB Conc 32.6 g/dL (31.5-36.5); Mean Corpuscular Volume 90 fL (80-100); Mean Platelet Volume 8.7 fL (9.1-12.4); NEUTROPHILS ABSOLUTE AUTO 10.86 K/mm3 (1.96-9.15); NEUTROPHILS PERCENT AUTO 79 % (41-73); Platelet Count 342 K/mm3 (150-400); RDW Coefficient Variation 14.3 % (11.7-14.2); RDW Standard Deviation 46.4 fL (35.1-46.3); White Blood Cell Count 13.79 K/mm3 (4.00-11.30)
[2024-09-23 10:59] LABS: Albumin, Blood 3.9 g/dL (3.4-5.0); Bilirubin, Total 0.5 mg/dL (0.1-1.0); Calcium, Blood 9.2 mg/dL (8.5-10.1); Globulin, Blood 3.9 g/dL (2.2-4.0); Potassium, Blood 3.8 mmol/L (3.5-5.5); Total Protein, Blood 7.8 g/dL (6.4-8.2)
== END ==
LOC: LAB 10:46 → LAB SHORT 10:46
PROVIDERS: Emergency Medicine
DX: R10.31 Right lower quadrant pain (principal)
CPT/HCPCS: 80053; 83690; 85025

== ENCOUNTER 2025-09-21 16:00 | Emergency (ER) | payer MEDICARE, OTHER ==
[~2025-09-21] VITALS: Ht 167.6 cm; Wt 86.2 kg
[~2025-09-21 16:00] MED LIST changes: +ALBU90OI INH; +Nicoderm Cq1 EAC1 TOP
[2025-09-21] MEDS ORDERED: Ipratropium/Albuterol SulF 2.5-0.5MG/3 ML Amp INH ONE (16:20)
[2025-09-21 17:01] LABS: Hematocrit 49.5 % (33.0-51.0); Hemoglobin 16.5 g/dL (11.5-16.0); Mean Corpuscular HGB Conc 33.3 g/dL (31.5-36.5); Mean Corpuscular Volume 88 fL (80-100); NRBC ABSOLUTE 0.00 K/mm3 (0.00-0.02); NRBC Auto 0.0 /100 WBC (0.0-0.2); Platelet Count 399 K/mm3 (150-400); RDW Coefficient Variation 14.6 % (11.7-14.2); RDW Standard Deviation 46.8 fL (35.1-46.3)
[2025-09-21 17:16] LABS: Alanine Aminotransfer (ALT/SGP 85.0 U/L (12-78); Albumin, Blood 4.4 g/dL (3.4-5.0); Albumin/Globulin Ratio 1.3 (0.8-1.8); Anion Gap 9.0 mmol/L (3-11); Aspartate Aminotrans (AST/SGOT 42.0 U/L (12-37); Bilirubin, Total 0.2 mg/dL (0.1-1.0); Blood Urea Nitrogen 14.0 mg/dL (8-24); CO2, Blood 28.0 mmol/L (21-32); Calcium, Blood 9.2 mg/dL (8.5-10.1); Chloride, Blood 104.0 mmol/L (98-108); Creatinine, Blood 0.74 mg/dL (0.40-1.00); Globulin, Blood 3.5 g/dL (2.2-4.0); Glucose, Blood 117.0 mg/dL (70-99); Potassium, Blood 3.4 mmol/L (3.5-5.5); Sodium, Blood 138.0 mmol/L (136-145); Total Protein, Blood 7.9 g/dL (6.4-8.2)
[2025-09-21 17:29] LABS: BASOPHILS ABSOLUTE MAN 0.00 K/mm3 (0.00-0.23); BASOPHILS PERCENT MAN 0 % (0-2); EOSINOPHILS ABSOLUTE MAN 0.50 K/mm3 (0.00-0.68); EOSINOPHILS PERCENT MAN 3 % (0-6); LYMPHOCYTES ABSOLUTE MAN 5.39 K/mm3 (0.84-5.20); LYMPHOCYTES PERCENT MAN 32 % (21-46); MONOCYTES ABSOLUTE MAN 1.18 K/mm3 (0.16-1.47); MONOCYTES PERCENT MAN 7 % (4-13); NEUTROPHILS ABSOLUTE MAN 9.77 K/mm3 (1.96-9.15); SEG NEUTROPHILS PERCENT MAN 58 % (41-73)
[2025-09-21] MEDS ORDERED: DOXY100 PO (17:34)
[2025-09-21 18:25] VITALS: BP 138/85
== END 2025-09-21 18:25 | disposition home or self-care (01) ==
LOC: ER 16:00
PROVIDERS: Student in an Organized Health Care Education/Training Program
DX: J44.1 Chronic obstructive pulmonary disease with (acute) exacerbation (principal); E78.00 Pure hypercholesterolemia, unspecified; K21.9 Gastro-esophageal reflux disease without esophagitis; I10 Essential (primary) hypertension; E11.9 Type 2 diabetes mellitus without complications; Z79.51 Long term (current) use of inhaled steroids; Z79.899 Other long term (current) drug therapy; Z91.041 Radiographic dye allergy status; Z88.0 Allergy status to penicillin; Z91.040 Latex allergy status; Z88.5 Allergy status to narcotic agent; Z88.8 Allergy status to other drugs, medicaments and biological substances
CPT/HCPCS: 71046; 80053; 84484; 85025; 96374; 99285-25; J2919